=== PATIENT | male | born 1950 | race Caucasian/White ===

== ENCOUNTER → 2018-10-03 11:35 | Outpatient (CLI) | payer MEDICARE, SELFPAY ==
[2018-10-03 12:17] LABS: INR 4.5 (0.9-1.3); Prothrombin Time 53.1 SECONDS (10.1-12.7)
== END ==
DX: Z95.2 Presence of prosthetic heart valve (principal)
CPT/HCPCS: 36415; 85610

== ENCOUNTER → 2018-10-11 15:36 | Outpatient (CLI) | payer MEDICARE, SELFPAY ==
[2018-10-11 17:44] LABS: INR 2.9 (0.9-1.3); Prothrombin Time 34.8 SECONDS (10.1-12.7)
== END ==
PROVIDERS: Visit Provider Internal Medicine Cardiovascular Disease
DX: Z95.2 Presence of prosthetic heart valve (principal)
CPT/HCPCS: 36415; 85610